=== PATIENT | male | born 2000 | race Caucasian/White ===

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

== ENCOUNTER → 2021-04-16 | Outpatient (CLI) | payer BC ==
[2021-04-17 09:07] LABS: HEPATITIS B SURFACE AB Non Reactive (.)
[2021-04-17 15:07] LABS: RUBEOLA AB IGG 55.5 AU/mL (Immune >16.4); VARICELLA-ZOSTER IGG <135 index (Immune >165)
== END | disposition home or self-care (01) ==
LOC: LAB 16:02
PROVIDERS: ATTEND Pediatrics Adolescent Medicine
DX: Z01.84 Encounter for antibody response examination (principal)